=== PATIENT | female | born 1995 | race Two or more races ===

== ENCOUNTER 2020-07-29 07:15 | Emergency (ER) | payer OTHER ==
[~2020-07-29] VITALS: Ht 162.6 cm; Wt 90.7 kg
== END 2020-07-29 11:13 ==
LOC: ER 07:15
DX: O26.891 Other specified pregnancy related conditions, first trimester (principal); R10.2 Pelvic and perineal pain; Z34.01 Encounter for supervision of normal first pregnancy, first trimester

== ENCOUNTER 2020-07-31 09:35 | Outpatient (CLI) | payer OTHER | END 2020-07-31 09:50 | disposition home or self-care (01) | LOC: LAB 09:35 | DX: O20.0 Threatened abortion (principal); O26.899 Other specified pregnancy related conditions, unspecified trimester ==

== ENCOUNTER 2020-08-08 11:17 | Emergency (ER) | payer OTHER ==
[~2020-08-08] VITALS: Ht 162.6 cm; Wt 90.7 kg
[2020-08-08] MEDS ORDERED: PRENATAL + DHA1 EAC1 (11:28)
[2020-08-08] MEDS ORDERED: NASAL MIST126 ML (11:28)
== END 2020-08-08 16:40 | disposition home or self-care (01) ==
LOC: ER 11:17
DX: O26.851 Spotting complicating pregnancy, first trimester (principal); O36.80X1 Pregnancy with inconclusive fetal viability, fetus 1; Z34.01 Encounter for supervision of normal first pregnancy, first trimester